=== PATIENT | male | born 1940 | race Hispanic/Latino ===

== ENCOUNTER → 2022-11-07 | Outpatient (CLI) | payer OTHER | END | disposition home or self-care (01) | LOC: SHCH 10:55 | PROVIDERS: ATTEND Internal Medicine Cardiovascular Disease | DX: I87.2 Venous insufficiency (chronic) (peripheral) (principal) | CPT/HCPCS: 93970 ==

== ENCOUNTER → 2024-07-27 | Outpatient (CLI) | payer OTHER ==
--- NOTE | 2024-07-27 15:20 | HMCIMG ---
Exam Type: FEMUR 2VW RIGHT Clinical Information: Pain in right leg, PAIN IN RIGHT KNEE Comparison: None Findings: The bone examination is unremarkable. No fractures or dislocations are seen. No radiopaque foreign bodies are noted. Soft tissues are preserved. IMPRESSION: Normal examination.
--- NOTE | 2024-07-27 15:21 | HMCIMG ---
Exam Type: KNEE 3VWS RT Clinical Information: Pain in right leg, Comparison: None Findings: The bone examination is unremarkable. No fractures or dislocations are seen. No radiopaque foreign bodies are noted. Incidentally, there is a bipartite patella. Soft tissues are preserved. IMPRESSION: Normal examination.
== END | disposition home or self-care (01) ==
LOC: RAH 14:15
PROVIDERS: ATTEND Family Medicine
DX: M79.604 Pain in right leg (principal); M25.561 Pain in right knee; Q74.1 Congenital malformation of knee
CPT/HCPCS: 73552; 73562

== ENCOUNTER → 2024-07-27 | Outpatient (CLI) | payer OTHER ==
--- NOTE | 2024-07-29 07:21 | HMCSR ---
APPROVED REPORT Bilateral Lower Extremity Venous Study for DVT., Venous Competence. Indications i87.1 I87.2 Vein Imaging CFV (R): Normal flow, augmentation and compression. No evidence of DVT. 8.5mm 4042ms SFJ (R): Normal flow, augmentation and compression. No evidence of DVT. FEM (R): Normal flow, augmentation and compression. No evidence of DVT. POP (R): Normal flow, augmentation and compression. No evidence of DVT. DFV (R): Normal flow, augmentation and compression. No evidence of DVT. PTV (R): Normal flow, augmentation and compression. No evidence of DVT. Peroneals (R): Normal flow, augmentation and compression. No evidence of DVT. CFV (L): Normal flow, augmentation and compression. No evidence of DVT. 12.6mm 2372ms SFJ (L): Normal flow, augmentation and compression. No evidence of DVT. FEM (L): Normal flow, augmentation and compression. No evidence of DVT. POP (L): Normal flow, augmentation and compression. No evidence of DVT. DFV (L): Normal flow, augmentation and compression. No evidence of DVT. PTV (L): Normal flow, augmentation and compression. No evidence of DVT. Peroneals (L): Normal flow, augmentation and compression. No evidence of DVT. Technologist Impression Deep veins of bilateral lower extremities appear patent and compressible without thrombus Deep Venous reflux noted on RCFV and LCFV Superficial venous insufficiency seen on RGSV and RSSV, LGSV RGSV Junction 3.8mm 4042ms thigh 5.8mm 4472ms knee 5.4mm 4150ms calf 7.5mm 572ms (cluster of veins noted in this area) RSSV Prox 3.6mm 594ms Mid 4.0mm 511ms LGSV Junction 5.4mm 1383mm thigh 4.1mm 0.0ms knee 3.5mm 0.0ms calf 2.8mm 0.0ms LSSV Prox 2.8mm 0.0ms Mid 2.4mm 0.0ms Conclusion Deep Venous reflux noted on RCFV and LCFV Superficial venous insufficiency seen on RGSV and RSSV, LGSV Consider formal venography with IVUS if clinically indicated Conclusion Deep Venous reflux noted on RCFV and LCFV Superficial venous insufficiency seen on RGSV and RSSV, LGSV Consider formal venography with IVUS if clinically indicated
== END | disposition home or self-care (01) ==
LOC: SHCH 10:56
PROVIDERS: ATTEND Internal Medicine Cardiovascular Disease
DX: I87.2 Venous insufficiency (chronic) (peripheral) (principal); I87.1 Compression of vein; I73.9 Peripheral vascular disease, unspecified
CPT/HCPCS: 93970